=== PATIENT | female | born 1980 | race Caucasian/White ===

== ENCOUNTER 2017-08-11 18:35 | Outpatient (CLI) | payer BC | END 2017-08-11 21:17 | disposition home or self-care (01) | LOC: OBT 18:35 → L-D 18:37 → OBT 20:44 → L-D 20:44 → OBT 21:17 | DX: O48.0 Post-term pregnancy (principal); Z3A.40 40 weeks gestation of pregnancy; O09.523 Supervision of elderly multigravida, third trimester | CPT/HCPCS: 76815; 76818 ==

== ENCOUNTER 2017-08-12 08:22 | Inpatient (IN) | payer BC ==
[2017-08-12] MEDS ORDERED: OXYTOCIN 30 UNITS/LR 500 ML IV ×3 (09:00)
[2017-08-12] MEDS ORDERED: METHYLERGONOVINE 0.2 MG INJ IM (09:00)
[2017-08-12] MEDS ORDERED: CARBOPROST 250 MCG INJ IM (09:00)
[2017-08-12] MEDS ORDERED: LIDOCAINE 1% (MPF) 30 ML INJ INJ (09:00)
[2017-08-12] MEDS ORDERED: MISOPROSTOL 200 MCG TAB PR (09:00)
[2017-08-12] MEDS ORDERED: BUTORPHANOL 2 MG INJ IV ×2 (09:00)
[2017-08-12] MEDS ORDERED: IBUPROFEN 600 MG TAB PO (09:00)
[2017-08-12 09:45] LABS: ADD MAN DIFF? NO
[2017-08-12 09:47] LABS: WHITE BLOOD COUNT 6.4 10^3/ul (4.8-10.8)
[2017-08-12 09:47] LABS: BASOPHIL # 0.1 10^3/ul (0.0-0.1); BASOPHILS % 0.8 % (0.0-2.0); EOSINOPHILS # 0.1 10^3/ul (0.0-0.5); EOSINOPHILS % 1.3 % (0.0-7.0); HEMATOCRIT 39.9 % (37.0-47.0); HEMOGLOBIN 14.1 g/dl (12.0-16.0); LYMPHOCYTES # 1.4 10^3/ul (0.8-2.9); LYMPHOCYTES % 21.5 % (15.0-51.0); MEAN CORPUSCULAR HEMOGLOBIN 31.1 pg (29.0-33.0); MEAN CORPUSCULAR HGB CONC 35.3 g/dl (32.0-37.0); MEAN CORPUSCULAR VOLUME 88.1 fl (82.0-101.0); MEAN PLATELET VOLUME 12.8 fl (7.4-10.4); MONOCYTE # 0.6 10^3/ul (0.3-0.9); MONOCYTES % 8.8 % (0.0-11.0); NEUTROPHIL # 4.3 10^3/ul (1.6-7.5); PLATELET COUNT 150 10^3/UL (140-415); RED BLOOD COUNT 4.53 10^6/ul (4.20-5.40); RED CELL DISTRIBUTION WIDTH 13.5 % (11.5-14.5)
[2017-08-12 10:11] LABS: INR 0.82; PROTIME 11.4 Sec (11.9-14.9); PT RATIO 0.9
[2017-08-12 10:12] LABS: PARTIAL THROMBOPLASTIN TIME 28.7 Sec (25.0-35.0)
[2017-08-12 10:48] LABS: HEPATITIS B SURFACE ANTIGEN NEGATIVE (NEGATIVE)
[2017-08-12] MEDS: DINOPROSTONE 10 MG VAG SUPP VAG (10:59)
[2017-08-12] MEDS: LACTATED RINGER'S 1,000 ML IV ×2 (11:00→16:50)
[2017-08-12 20:09] LABS: RAPID PLASMA REAGIN NONREACTIVE (NR)
[2017-08-12] MEDS: DEXTROSE 5%-LR 1,000 ML IV (23:00)
[2017-08-12] MEDS: OXYTOCIN 30 UNITS/LR 500 ML IV (23:58)
[2017-08-13] MEDS: LACTATED RINGER'S 1,000 ML IV ×4 (00:39→23:19)
[2017-08-13] MEDS ORDERED: FENTAnyl 2MCG/ML-ROPIV 0.2% 100 ML (00:52)
[2017-08-13] MEDS ORDERED: DIPHENHYDRAMINE 50 MG INJ IV ×3 (01:30→19:00)
[2017-08-13] MEDS ORDERED: ONDANSETRON 4 MG INJ IV ×3 (01:30→19:00)
[2017-08-13] MEDS ORDERED: NALOXONE (0.4 MG/ML) INJ IV ×2 (01:30→19:00)
[2017-08-13] MEDS: FENTAnyl 2MCG/ML-ROPIV 0.2% 100 ML BAG EPI (09:30)
[2017-08-13] MEDS: OXYTOCIN 30 UNITS/LR 500 ML IV ×3 (16:08→19:09)
[2017-08-13] MEDS ORDERED: CEFAZOLIN 2 GM/50 ML (PMX) 50 ML IVPB ×2 (16:13→16:30)
[2017-08-13] MEDS ORDERED: CARBOPROST 250 MCG INJ IM (16:30)
[2017-08-13] MEDS ORDERED: LANOLIN 7 GM TUBE TOP (16:30)
[2017-08-13] MEDS ORDERED: HYDROCODONE/APAP (5/325) TAB PO (16:30)
[2017-08-13] MEDS ORDERED: NA PHOSPHATE/BIPHOS 133 ML ENEMA PR (16:30)
[2017-08-13] MEDS ORDERED: MISOPROSTOL 200 MCG TAB PR (16:30)
[2017-08-13] MEDS ORDERED: METHYLERGONOVINE 0.2 MG TAB PO (16:30)
[2017-08-13] MEDS ORDERED: OXYTOCIN 30 UNITS/LR 500 ML IV (16:30)
[2017-08-13] MEDS ORDERED: METHYLERGONOVINE 0.2 MG INJ IM (16:30)
[2017-08-13] MEDS ORDERED: FENTAnyl 50 MCG/ML VIAL ×2 (16:33→17:44)
[2017-08-13] MEDS ORDERED: PHENYLephrine (100 MCG/ML) 5ML SYG (16:33)
[2017-08-13] MEDS ORDERED: METOCLOPRAMIDE 10 MG INJ (16:33)
[2017-08-13] MEDS ORDERED: OXYTOCIN 10 UNIT INJ ×2 (16:33→17:32)
[2017-08-13] MEDS ORDERED: morphine SULFATE/PF (10 MG/10 ML) INJ (16:33)
[2017-08-13] MEDS ORDERED: NA BICARBONATE 8.4% 50 ML SYG (16:35)
[2017-08-13] MEDS ORDERED: LIDOCAINE 100 MG SYRINGE (16:35)
[2017-08-13] MEDS ORDERED: KETAMINE 500 MG INJ (17:46)
[2017-08-13 17:54] LABS: AADO2 Cord Arterial 67.5 mmHg; Arterial Cord Blood pCO2 40.5 mmHG (25-50); CBA Base Excess -7.2 mmol/L; CBA COHb 1.1 %; CBA Oxygen Sat 73.2 mmHG; CBA Total Hemglobin 16.1 g/dl; Cord Blood Arterial pO2 33.7 mmHG (15.0-45.0); Fraction OxyHgb Cord Arterial 71.7 %; MODE ROOM AIR; Sample Type CBA; Site CORD
[2017-08-13] MEDS ORDERED: hydrALAzine 20 MG INJ IV (19:00)
[2017-08-13] MEDS ORDERED: morphine 2 MG INJ IV (19:00)
[2017-08-13] MEDS ORDERED: KETOROLAC 30 MG INJ IV (19:00)
[2017-08-13] MEDS ORDERED: EPHEDrine SULFATE 50 MG/5 ML SYG IV (19:00)
[2017-08-13] MEDS ORDERED: IPRATROPIUM (NEB) 0.5 MG/2.5 ML AMP HHN (19:00)
[2017-08-13] MEDS ORDERED: MEPERIDINE 25 MG INJ IV (19:00)
[2017-08-13] MEDS ORDERED: OXYCODONE/ACETAMINOPHEN (5/325) TAB PO ×2 (19:00)
[2017-08-13] MEDS ORDERED: NALBUPHINE HCL (10 MG/1 ML) INJ IV (19:00)
[2017-08-13] MEDS ORDERED: LABETALOL HCL 20MG INJ IV (19:00)
[2017-08-13] MEDS ORDERED: morphine 4 MG/ML VIAL IV (19:00)
[2017-08-13] MEDS ORDERED: HYDROmorphONE (0.2 MG/ML) 10ML SYG IV ×3 (19:00)
[2017-08-13] MEDS ORDERED: TRIMETHOBENZAMIDE 100 MG/ML VIAL IM ×2 (19:00)
[2017-08-13] MEDS ORDERED: FENTAnyl 50 MCG/ML VIAL IV ×3 (19:00)
[2017-08-13] MEDS ORDERED: ALBUTEROL 0.083% (NEB) 2.5 MG/3 ML AMP HHN (19:00)
[2017-08-13] MEDS: MEPERIDINE 25 MG INJ IV (19:19)
[2017-08-13] MEDS: KETOROLAC 30 MG INJ IV ×2 (20:45→22:30)
[2017-08-13] MEDS: SENNA/DOCUSATE NA (8.6MG/50MG) TAB PO (21:00)
[2017-08-13] MEDS: IBUPROFEN 800 MG TAB PO (22:00)
[2017-08-13] MEDS: CEFAZOLIN 2 GM/50 ML (PMX) 50 ML IV (22:05)
[2017-08-14] MEDS: KETOROLAC 30 MG INJ IV ×4 (04:46→22:30)
[2017-08-14] MEDS: CEFAZOLIN 2 GM/50 ML (PMX) 50 ML IV ×2 (05:43→08:30)
[2017-08-14] MEDS: IBUPROFEN 800 MG TAB PO ×3 (06:00→22:06)
[2017-08-14] MEDS: LACTATED RINGER'S 1,000 ML IV ×3 (08:08→16:08)
[2017-08-14 08:22] LABS: ADD MAN DIFF? NO
[2017-08-14 08:33] LABS: BASOPHILS % 0.3 % (0.0-2.0); HEMATOCRIT 31.4 % (37.0-47.0); HEMOGLOBIN 11.2 g/dl (12.0-16.0); LYMPHOCYTES # 1.2 10^3/ul (0.8-2.9); LYMPHOCYTES % 9.3 % (15.0-51.0); MEAN CORPUSCULAR HEMOGLOBIN 31.6 pg (29.0-33.0); MEAN CORPUSCULAR HGB CONC 35.7 g/dl (32.0-37.0); MEAN CORPUSCULAR VOLUME 88.7 fl (82.0-101.0); MEAN PLATELET VOLUME 12.3 fl (7.4-10.4); MONOCYTES % 7.5 % (0.0-11.0); NEUTROPHIL # 10.5 10^3/ul (1.6-7.5); NEUTROPHILS % 82.4 % (39.0-77.0); PLATELET COUNT 113 10^3/UL (140-415); RED BLOOD COUNT 3.54 10^6/ul (4.20-5.40); RED CELL DISTRIBUTION WIDTH 14.1 % (11.5-14.5)
[2017-08-14 08:33] LABS: WHITE BLOOD COUNT 12.7 10^3/ul (4.8-10.8)
[2017-08-14] MEDS: SENNA/DOCUSATE NA (8.6MG/50MG) TAB PO ×2 (09:12→22:06)
[2017-08-14] MEDS: CEFAZOLIN 2 GM/50 ML (PMX) 50 ML IVPB (15:15)
[2017-08-14] MEDS: BISACODYL 10 MG SUPP PR (17:41)
[2017-08-15] MEDS: LACTATED RINGER'S 1,000 ML IV (00:08)
[2017-08-15] MEDS: HYDROCODONE/APAP (5/325) TAB PO ×3 (00:31→16:57)
[2017-08-15] MEDS: KETOROLAC 30 MG INJ IV ×4 (04:30→22:30)
[2017-08-15] MEDS: IBUPROFEN 800 MG TAB PO ×3 (05:44→21:52)
[2017-08-15] MEDS: SENNA/DOCUSATE NA (8.6MG/50MG) TAB PO ×2 (09:24→21:52)
[2017-08-15 10:56] LABS: ADD MAN DIFF? NO
[2017-08-15 11:04] LABS: BASOPHILS % 0.3 % (0.0-2.0); EOSINOPHILS # 0.1 10^3/ul (0.0-0.5); EOSINOPHILS % 0.9 % (0.0-7.0); HEMATOCRIT 33.4 % (37.0-47.0); HEMOGLOBIN 11.5 g/dl (12.0-16.0); LYMPHOCYTES # 1.4 10^3/ul (0.8-2.9); LYMPHOCYTES % 12.1 % (15.0-51.0); MEAN CORPUSCULAR HEMOGLOBIN 31.2 pg (29.0-33.0); MEAN CORPUSCULAR HGB CONC 34.4 g/dl (32.0-37.0); MEAN CORPUSCULAR VOLUME 90.5 fl (82.0-101.0); MEAN PLATELET VOLUME 12.3 fl (7.4-10.4); MONOCYTE # 0.6 10^3/ul (0.3-0.9); NEUTROPHIL # 9.6 10^3/ul (1.6-7.5); NEUTROPHILS % 81.1 % (39.0-77.0); PLATELET COUNT 136 10^3/UL (140-415); RED BLOOD COUNT 3.69 10^6/ul (4.20-5.40); RED CELL DISTRIBUTION WIDTH 14.1 % (11.5-14.5)
[2017-08-15 11:04] LABS: WHITE BLOOD COUNT 11.8 10^3/ul (4.8-10.8)
[2017-08-15] MEDS: BISACODYL (EC) 5 MG TAB PO (13:00)
[2017-08-16] MEDS: KETOROLAC 30 MG INJ IV ×2 (04:30→08:01)
[2017-08-16] MEDS: IBUPROFEN 800 MG TAB PO ×2 (05:49→14:00)
[2017-08-16] MEDS: MEASLES,MUMPS,RUBELLA VACCINE INJ SC* (09:00)
[2017-08-16] MEDS: DIPHTH/TET/ACEL PERTUSS (ADULT) 0.5 ML VIAL IM* (09:59)
[2017-08-16] MEDS: SENNA/DOCUSATE NA (8.6MG/50MG) TAB PO (09:59)
== END 2017-08-16 14:35 | disposition home or self-care (01) | DRG 766 ==
LOC: L-D 08-13 16:56 → PP1 08-13 21:23
PROVIDERS: Obstetrics & Gynecology
PROC: 3E0P7VZ Introduction of Hormone into Female Reproductive, Via Natural or Artificial Opening (ICD-10-PCS; 2017-08-12 08:00)
PROC: 10D00Z1 Extraction of Products of Conception, Low, Open Approach (ICD-10-PCS; principal; 2017-08-13 16:45)
DX: O24.420 Gestational diabetes mellitus in childbirth, diet controlled (principal); O32.4XX0 Maternal care for high head at term, not applicable or unspecified; O62.1 Secondary uterine inertia; Z37.0 Single live birth; Z3A.41 41 weeks gestation of pregnancy
CPT/HCPCS: 36600; 62319; 82803; 82962; 85025; 85610; 85730; 86592; 86900; 86901; 87340; 88307; 90715; 94760; 99464